=== PATIENT | female | born 1940 | race Caucasian/White ===

== ENCOUNTER 2017-03-03 19:09 | Emergency (ER) | payer MEDICARE ==
[2017-03-03 19:25] VITALS: BP 156/64
--- NOTE | 2017-03-03 20:01 | UC ---
Ear Complaint HPI - HPI Summary HPI Summary: Patient presents to the ED with CC of ear fullness, ear pain which radiates down the right side of the neck since last Saturday. She states it was worse tonight while out to dinner with friends. Denies history of vertigo, ear infections, labrynthitis, BPPV or other inner ear pathologist. PCP is Dr. Roblero and calender worker helper is Dr. Mcintyre. She had one episode of ventricular rhythm and was referred for stress tests, echo, ect 12 years ago. She states she has had 12 years of stress tests with no acute findings and also a cardiac cath with no blockages noted. She is healthy and takes no medications. On arrival, she is somewhat unsteady on her feet, however she states she is just "very aware of not falling." No history of fall. She feels as though her inner ear is "crackling" when she eats and she has decreased hearing since tonight because of it. - History of Current Complaint Chief Complaint: UCEar Stated Complaint: RIGHT EAR COMPLAINT Time Seen by Provider: 03/03/17 19:34 Hx Obtained From: Patient ?: No Onset/Duration: Sudden Onset Severity Initially: Moderate Severity Currently: Moderate Pain Intensity: 8 Pain Scale Used: 0-10 Numeric Associated Signs/Symptoms: Positive: Hearing Loss, URI Symptoms. Negative: Discharge, Foreign Body Sensation - Allergies/Home Medications Allergies/Adverse Reactions: Allergies Allergy/AdvReac Type Severity Reaction Status Date / Time Cefprozil [From Cefzil] Allergy CANT BREATH Verified 03/03/17 19:27 Cefuroxime Allergy CANT BREATH Verified 03/03/17 19:27 Cephalosporins Allergy Unknown Verified 03/03/17 19:27 Reaction Details Clarithromycin [From Biaxin] Allergy Unknown Verified 03/03/17 19:27 Reaction Details Levofloxacin [From Levaquin] Allergy ANZIETY, Verified 03/03/17 19:27 DISORIENTATION Penicillins Allergy ITCHY HIVES Verified 03/03/17 19:27 Sulfa Drugs Allergy ITCHY HIVES Verified 03/03/17 19:27 Home Medications: Home Medications Ascorbic Acid TAB* [Vitamin C TAB*] 500 mg PO DAILY 03/03/17 [History Confirmed 03/03/17] PMH/Surg Hx/FS Hx/Imm Hx Previously Healthy: Yes - Surgical History Surgical History: Yes Surgery Procedure, Year, and Place: MACULAR HOLE RIGHT EYE, [place] 01/2012 - Social History Occupation: Unemployed Lives: With Family Alcohol Use: None Substance Use Type: None Smoking Status (MU): Never Smoked Tobacco Review of Systems Constitutional: Negative Skin: Negative ENT: Ear Ache Respiratory: Negative Cardiovascular: Negative Motor: Negative Musculoskeletal: Negative Neurological: Negative Is Patient Immunocompromised?: No All Other Systems Reviewed And Are Negative: Yes Physical Exam Triage Information Reviewed: Yes Appearance: Well-Appearing, No Pain Distress, Well-Nourished Vital Signs: Initial Vital Signs Temp 97.3 F 03/03/17 19:20 Pulse 63 03/03/17 19:20 Resp 16 03/03/17 19:20 BP 156/64 03/03/17 19:20 Pulse Ox 100 03/03/17 19:20 Eye Exam: Normal Eyes: Positive: Conjunctiva Clear ENT: Positive: Uvula midline. Negative: Pharyngeal erythema, Nasal congestion, TM bulging, TM dull, TM red, Tonsillar swelling, Tonsillar exudate, Hoarse voice , Dental tenderness, Sinus tenderness Dental Exam: Normal Neck exam: Normal Neck: Positive: Nontender, No Lymphadenopathy Respiratory Exam: Normal Respiratory: Positive: Chest non-tender, Lungs clear Cardiovascular Exam: Normal Cardiovascular: Positive: RRR Musculoskeletal Exam: Normal Musculoskeletal: Positive: Strength Intact Neurological Exam: Normal Neurological: Positive: Alert Psychological: Positive: Normal Response To Family Skin Exam: Normal Ear Complaint Course/Dx - Course Course Of Treatment: Discussed case with Dr. Donald. Bruits heard to the R carotid. She is advised to go directly to the ED for further evaluation of the earache as well as the bruit to the right side. Friends taking to ED and son will meet her there. - Differential Dx/Diagnosis Differential Diagnosis/HQI/PQRI: URI, Other - labrynthitis, myringitis, BPPV, eustacian tube dysfunction, other ear pain Provider Diagnoses: ear pain Discharge - Discharge Plan Condition: Stable Disposition: HOME Referrals: Ned Roblero DO [Primary Care Provider] - Additional Instructions: Please go directly to the ER
== END 2017-03-03 20:16 | disposition home or self-care (01) ==
LOC: UCEAST 19:09
DX: H92.01 Otalgia, right ear (principal); R09.89 Other specified symptoms and signs involving the circulatory and respiratory systems; Z88.1 Allergy status to other antibiotic agents; Z88.0 Allergy status to penicillin; Z88.2 Allergy status to sulfonamides
CPT/HCPCS: 99212; G0463

== ENCOUNTER 2017-03-03 20:33 | Emergency (ER) | payer MEDICARE ==
[2017-03-03] MEDS ORDERED: Ibuprofen TAB* 400 MG PO ONE (22:43)
[2017-03-03] MEDS ORDERED: Clindamycin CAP* 150 MG PO ONE (22:43)
[2017-03-03 23:06] VITALS: BP 160/53
--- NOTE | 2017-03-07 11:09 | ED ---
Ines An Gabriel, scribed for Shahram Najera MD on 03/03/17 at 2220 . Throat Pain/Nasal Congestion - HPI Summary HPI Summary: This patient is a 76 year old F presenting to [facility] accompanied by her son with a chief complaint of ear ache since a week ago but worse tonight. The patient rates the pain 6/10 in severity and radiating down her neck. Patient reports trouble hearing, popping in ears on swallowing, feeling disoriented, and difficulty balancing. Patient denies ringing in ears, fever, chills, diaphoresis , CP, SOB, difficulty breathing, edema, ABD pain, OLVERA, and dental pain. The patient denies any recent illness and was sent to ED from . - History of Current Complaint Chief Complaint: EDEarPain Time Seen by Provider: 03/03/17 22:07 Hx Obtained From: Patient Onset/Duration: Lasting Weeks - 1, Still Present Severity: Moderate Associated Signs And Symptoms: Positive: Negative - ringing, fevers, chills, diaphoresis, CP, SOB, difficulty breathing, edema, ABD pain, OLVERA, - Allergies/Home Medications Allergies/Adverse Reactions: Allergies Allergy/AdvReac Type Severity Reaction Status Date / Time Cefprozil [From Cefzil] Allergy CANT BREATH Verified 03/03/17 19:27 Cefuroxime Allergy CANT BREATH Verified 03/03/17 19:27 Cephalosporins Allergy Unknown Verified 03/03/17 19:27 Reaction Details Clarithromycin [From Biaxin] Allergy Unknown Verified 03/03/17 19:27 Reaction Details Levofloxacin [From Levaquin] Allergy ANZIETY, Verified 03/03/17 19:27 DISORIENTATION Penicillins Allergy ITCHY HIVES Verified 03/03/17 19:27 Sulfa Drugs Allergy ITCHY HIVES Verified 03/03/17 19:27 PMH/Surg Hx/FS Hx/Imm Hx Cardiovascular History: Denies: Other Cardiovascular Problems/Disorders Respiratory History: Reports: Hx Asthma GI History: Comment Only: Other GI Disorders - JEFFY MAK VIRUS 1985 Musculoskeletal History: Reports: Hx Arthritis - IN HANDS Denies: Hx Rheumatoid Arthritis, Hx Osteoporosis Sensory History: Reports: Hx Cataracts, Hx Contacts or Glasses - READING GLASSES Denies: Hx Hearing Aid Opthamlomology History: Reports: Hx Cataracts, Hx Contacts or Glasses - READING GLASSES Neurological History: Denies: Other Neuro Impairments/Disorders - Cancer History Hx Chemotherapy: No Hx Radiation Therapy: No - Surgical History Surgery Procedure, Year, and Place: MACULAR HOLE RIGHT EYE, [place] 01/2012 Hx Anesthesia Reactions: No Infectious Disease History: No Infectious Disease History: Denies: Traveled Outside the [place] in Last 30 Days - Family History Known Family History: Negative: Hypertension - Social History Alcohol Use: None Substance Use Type: Reports: None Smoking Status (MU): Never Smoked Tobacco Review of Systems Negative: Fever, Chills, Skin Diaphoresis Negative: Erythema ENT: Negative - ringing in ears Positive: Ear Ache - radiating into neck, Other - trouble hearing, popping in ears on swallowing. Negative: Dental Pain, Sore Throat Negative: Chest Pain Respiratory: Negative - difficulty breathing Negative: Shortness Of Breath, Cough Negative: Abdominal Pain, Vomiting, Nausea Negative: dysuria, hematuria Negative: Myalgia, Edema Negative: Rash Neurological: Negative - dizziness , Other - , feeling disoriented, and difficulty balancing Negative: Headache All Other Systems Reviewed And Are Negative: Yes Physical Exam - Summary Physical Exam Summary: Constitutional: Well-developed, Well-nourished, Alert. (-) Distressed Skin: Warm, Dry HENT: Cerumen impacting on right. Complete visualization of TM, it is erythematous and there is a serous effusion Eyes: Conjunctiva normal Neck: Musculoskeletal ROM normal neck. (-) JVD, (-) Stridor, (-) Tracheal deviation. No carotid bruit Cardio: Rhythm regular, rate normal, Heart sounds normal; Intact distal pulses; The pedal pulses are 2+ and symmetric. Radial pulses are 2+ and symmetric. (-) Murmur Pulmonary/Chest wall: Effort normal. (-) Respiratory distress, (-) Wheezes, (-) Rales Abd: Soft, (-) Tenderness, (-) Distension, (-) Guarding, (-) Rebound Musculoskeletal: (-) Edema Lymph: (-) Cervical adenopathy Neuro: Alert, Oriented x3, Strength normal, Cranial nerves II-XII are grossly intact. (-) Dysmetria, (-) Nystagmus, (-) Ataxia by finger to nose testing, (-) Sensory deficit. Psych: Mood and affect Normal Triage Information Reviewed: Yes Vital Signs On Initial Exam: Initial Vitals Temp Pulse Resp BP Pulse Ox 97.8 F 59 15 180/53 99 03/03/17 20:35 03/03/17 20:35 03/03/17 20:35 03/03/17 20:35 03/03/17 20:35 Vital Signs Reviewed: Yes Procedures - Procedure Summary Procedure Summary: Clear of cerumen impaction using a curette, tolerated well. Now TMs is visible. Diagnostics - Vital Signs Vital Signs Temp Pulse Resp BP Pulse Ox 03/03/17 20:35 97.8 F 59 15 180/53 99 - Laboratory Lab Statement: Any lab studies that have been ordered have been reviewed, and results considered in the medical decision making process. EENT Course/Dx - Course Assessment/Plan: This patient is a 76 year old F presenting to [facility] accompanied by her son with a chief complaint of ear ache since a week ago but worse tonight. Clear of cerumen impaction using a curette, tolerated well. Now TMs is visible. Dx otitis media and cerumen impaction. In the ED course the patient was given Clindamycin. Patient will be discharged with prescription for clindamycin and follow up from PCP. The patient is agreeable with this plan. - Diagnoses Provider Diagnoses: Cerumen impaction, Otitis media Discharge - Discharge Plan Condition: Stable Disposition: HOME Prescriptions: Clindamycin HCl [Clindamycin 150 MG CAP*] 300 mg PO QID #40 cap Patient Education Materials: Clindamycin (By mouth), Otitis Media (ED) Referrals: Ned Roblero DO [Primary Care Provider] - 3 Days Additional Instructions: RETURN TO THE EMERGENCY DEPARTMENT FOR CHANGING OR WORSENING SYMPTOMS. The documentation as recorded by the Ines burk Gabriel accurately reflects the service I personally performed and the decisions made by , Shahram Najera MD.
== END 2017-03-03 23:09 | disposition home or self-care (01) ==
LOC: ED 20:33
DX: H61.20 Impacted cerumen, unspecified ear (principal); H66.90 Otitis media, unspecified, unspecified ear; H92.09 Otalgia, unspecified ear
CPT/HCPCS: 96374; 99282; A9270-GY

== ENCOUNTER 2017-09-11 14:00 | Day surgery (SDC) | payer MEDICARE ==
[~2017-09-11 14:00] MED LIST: Buffered Lidocaine 0.9% SYRIN* 5 ML/SYR SYRINGE INTRADERM ONE
[2017-09-11] MEDS ORDERED: Cyclopentolate 1% OPTH.SOL* 2 ML BTL ONE (15:04)
[2017-09-11] MEDS ORDERED: Ketorolac 0.5% OPHTH (NF) 0.5 % 5 ML BTL ONE (15:04)
[2017-09-11] MEDS ORDERED: Phenylephrine 2.5% OPTH.SOL* 2 ML BTL ONE (15:04)
[2017-09-11] MEDS ORDERED: Proparacaine 0.5% OPHTH.SOL* 15 ML BTL ONE (15:04)
[2017-09-11] MEDS ORDERED: Lidocaine 1%* 5 ML VIAL ONE (15:04)
[2017-09-11] MEDS ORDERED: Lidocaine 2% EPI 1:200000 MPF*10-20 ML VIAL ONE (15:04)
[2017-09-11] MEDS ORDERED: acetaZOLAMIDE TAB* 250 MG ONE (15:04)
[2017-09-11] MEDS ORDERED: Povidone Iodine 5% OPTH* 30 ML BTL ONE (15:04)
[2017-09-11] MEDS ORDERED: Neomycin/Polymy/Dex OPTH.SUSP* MAXITROL 0.1% 5 ML ONE (15:04)
[2017-09-11] MEDS ORDERED: Midazolam* 1 MG/ML 2 ML VIAL (2 MG) ONE (15:57)
[2017-09-11] MEDS ORDERED: fentaNYL* 50 MCG/ML 2 ML VIAL (100 MCG VIAL) ONE (15:57)
[2017-09-11] MEDS ORDERED: Labetalol IV* 5 MG/ML 20 ML VIAL ONE (16:04)
[2017-09-11] MEDS ORDERED: Propofol* 10 MG/ML 20 ML BTL IV PUSH ONE (16:08)
[2017-09-11 16:26] VITALS: BP 120/50
--- NOTE | 2017-09-11 20:52 | OP ---
DATE OF OPERATION: 09/11/[address] [facility] DATE OF : 38 SURGEON: Adam Fernandez M.D. PREOPERATIVE DIAGNOSIS: Cataract, left eye. POSTOPERATIVE DIAGNOSIS: Cataract, left eye. OPERATIVE PROCEDURE: Extracapsular cataract extraction with intraocular lens implant left eye. DESCRIPTION OF PROCEDURE: The patient was brought to the operating room after being given 1/2% Alcaine with epinephrine drops in the preoperative area. The eye was prepped and draped in the usual sterile fashion. Sterile drape and eyelid speculum were placed. Again, topical 1/2% Alcaine with epinephrine was given. A paracentesis incision was made at the 3 o'clock position with the No.75 blade. Clear cornea incision 2.2 x 2.2-mm was created at the 6 o'clock position starting at the anterior limbus using the 2.2-mm keratome. The anterior chamber was irrigated with 0.4 mL of 1% non-preservative intracameral lidocaine and filled with DisCoVisc. A capsulorrhexis was completed using the cystotome and the Utrata forceps. Hydrodissection was performed with balanced salt solution. The lens nucleus was removed with the Phacoemulsification handpiece without incident. Cortex was removed with the irrigation-aspiration handpiece. The capsular bag was re-inflated using DisCoVisc and an [id number] implant was inserted with the shooter. The irrigation-aspiration handpiece was used to remove all residual DisCoVisc. The eye was refilled with balanced salt solution and the wound checked and found to be watertight. Topical Maxitrol drops were given. [id number]/[facility] #: [id number] MTDD
== END 2017-09-11 16:32 | disposition home or self-care (01) ==
LOC: OREAST 14:00
PROVIDERS: ATTEND Specialist
DX: H25.812 Combined forms of age-related cataract, left eye (principal); H35.341 Macular cyst, hole, or pseudohole, right eye; Z85.828 Personal history of other malignant neoplasm of skin; M54.2 Cervicalgia; M54.9 Dorsalgia, unspecified; E78.00 Pure hypercholesterolemia, unspecified
CPT/HCPCS: A9270-GY; J2250; J2704; J3010; V2632

== ENCOUNTER 2017-11-17 12:52 | Emergency (ER) | payer MEDICARE ==
--- OUTSIDE RECORDS SUMMARY | 2017-11-17 13:05 | XMS REPORT | Continuity of Care Document ---
:1940 External Reference #:[id number] Author Name Laurita Lopez O.D. Address [address] [place] [address] Care Team Providers Name Role Phone Ned oRblero D.O. 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 Active Onset: 01/06/2015 Presence of intraocular lens Adam Fernandez M.D. Active Onset: Lyme disease Active Onset: 09/24/2017 Vitreous degeneration Adam Fernandez M.D. Active Family History Date Family Member(s) Problem(s) Comments Father No Current Problems Mother Macular Degeneration First Sister Macular Hole Dr. 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 ETOH Use Denies alcohol use Tobacco Use Start: Unknown Patient has never smoked Recreational Drug Use Denies Drug Use Smoking Status Reviewed: 11/01/17 Patient has never smoked Allergies, Adverse Reactions, Alerts Date Description Reaction Status Severity Comments 01/06/2015 Sulfa Antibiotics Active 01/06/2015 Cefuroxime Active 01/06/2015 Cephalosporins Active 01/06/2015 Levaquin Active 01/06/2015 Penicillin Active 01/06/2015 Ceftin Active 01/10/2017 Neosporin Active Medications Medication Date Status Form Strength Qnty SIG Indications Ordering Provider Calcium 1000 + 00/00/ Active Tablets 1000-800mg Unknown D 0000 -Unit Multi Vitamin 00/00/ Active Tablets Unknown Daily 0000 Ibuprofen 00/00/ Active Capsules 200mg as needed Unknown 0000 Prednisolone 09/02/ Hx Suspension 1% 15ml 1 drop Adam J. Acetate 2018 - left eye [place], 10/10/ once a day M.D. 2018 Ketorolac 09/02/ Hx Solution 0.5% 10ml use one Adam Dejan Tromethamine 2018 - drop in [place], 09/01/ the left M.D. 2018 eye three times a day, start the day before surgery Gentamicin 09/02/ Hx Solution 0.3% 5ml one drop Adam J. Sulfate 2018 - in the [place], 09/14/ left eye M.D. 2018 three times a day starting the day before surgery Vitamin C ER 00/ Hx Tablets ER 1000mg Unknown 0000 - 2017 Immunizations Description No Information Available Vital Signs Description No Information Available Results Description No Information Available Procedures Date Code Description Status 10/12/2017 96665 Est Patient Intermediate Exam Completed 09/11/2017 97306 Extracapsular Cataract Extraction W/Intraocular Lens Completed 09/02/2017 60273 Ophthalmic Biometry Completed 07/09/2017 74786 Scanning Computerized Opthalmic Diagnostic Posterior Seg Completed Retina 07/09/2017 03305 Est Patient Comprehensive Exam Completed 01/10/2017 62018 Est Patient Comprehensive Exam Completed 07/10/2016 15136 Scanning Computerized Opthalmic Diagnostic Posterior Seg Completed Retina 07/10/2016 67190 Est Patient Comprehensive Exam Completed 07/11/2015 10795 Est Patient Intermediate Exam Completed 01/06/2015 96796 Est Patient Comprehensive Exam Completed 01/06/2015 29614 Determination Of Refractive State Completed 01/06/2015 87187 Scanning Computerized Opthalmic Diagnostic Posterior Seg Completed Retina 01/05/2014 86596 Scanning Computerized Opthalmic Diagnostic Posterior Seg Completed Retina 01/05/2014 68287 Est Patient Comprehensive Exam Completed 01/05/2013 24659 Scanning Computerized Opthalmic Diagnostic Posterior Seg Completed Retina 01/05/2013 22193 Est Patient Intermediate Exam Completed 06/18/2012 24349 Extracapsular Cataract Extraction W/Intraocular Lens Completed 06/10/2012 45022 Ophthalmic Biometry Completed 04/24/2012 39427 Scanning Computerized Opthalmic Diagnostic Posterior Seg Completed Retina 04/24/2012 71495 Est Patient Comprehensive Exam Completed 12/11/2011 45575 Scanning Computerized Opthalmic Diagnostic Posterior Seg Completed Retina 12/11/2011 53106 Est Patient Intermediate Exam Completed 07/24/2011 60170 Est Patient Comprehensive Exam Completed Encounters Type Date Location Provider Dx Diagnosis Office Visit 09/02/2017 Adam Paul, H25.812 Combined forms of 11:00a gill RUIZ M.D. age-related cataract, left eye H35.341 Macular cyst, hole, or pseudohole, right eye Z96.1 Presence of intraocular lens Office Visit 06/10/2012 12:00p Adam Paul 366.16 Senile Nuclear gill RUIZ M.D. Sclerosis / Cataract 366.16 Senile Nuclear Sclerosis / Cataract Plan of Treatment Future Appointment(s):09/25/2018 10:15 am - Adam Fernandez M.D. at Adam Fernandez MD, 11/01/2017 - Laurita Lopez O.D.H43.812 Vitreous degeneration, left eyeComments:Smoking can increase the risk of developing or worsening any eye related disease, as well as affect your overall health. If you are a smoker , we strongly recommend that you quit.If you are not a smoker, we strongly recommend that you do not start. You have a Posterior Vitreous Detachment in your left eye. If you have any changes in your floaters or flashing lights, please contact this office.Follow up:as [id number] Presence of intraocular lensComments:The artificial lens implants in both eyes appear to be stable at this time.
[2017-11-17] MEDS ORDERED: Ibuprofen TAB* 400 MG PO ONE (14:50)
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
[2017-11-17 15:07] LABS: ABS Basophils 0.1 10^3/ul (0-0.2); ABS Eosinophils 0.1 10^3/ul (0-0.6); ABS Lymphocytes 1.2 10^3/ul (1.0-4.8); ABS Monocytes 0.8 10^3/ul (0-0.8); ABS Neutrophils 9.8 10^3/ul (1.5-7.7); ABS Nucleated RBC 0 10^3/ul; Eosinophil % 0.9 % (0-6); Hematocrit 43 % (35-47); Hemoglobin 14.8 g/dl (12.0-16.0); Lymphocyte % 10.4 % (25-47); Mean Corpuscular HGB Conc 34 g/dl (31-36); Mean Corpuscular Hemoglobin 31 pg (27-31); Mean Corpuscular Volume 92 fL (80-97); Mean Platelet Volume 7.6 um3 (7.4-10.4); Nucleated Red Blood Cells % 0.1; Platelet Count 274 10^3/ul (150-450); Red Blood Count 4.74 10^6/ul (4.00-5.40); Red Cell Distribution Width 14 % (10.5-15)
[2017-11-17 15:28] LABS: EGFR Non-African American 77.1 (>60); Uric Acid 4.3 mg/dL (2.3-6.6)
[2017-11-17] MEDS ORDERED: NS 0.9% 1000 ML* 1,000 ML IV ONE (15:36)
[2017-11-17 16:31] VITALS: BP 172/74
== END 2017-11-17 16:30 | disposition home or self-care (01) ==
LOC: ED 12:52
DX: L03.116 Cellulitis of left lower limb (principal); L94.9 Localized connective tissue disorder, unspecified; J45.909 Unspecified asthma, uncomplicated
CPT/HCPCS: 36415; 80053; 83605; 84550; 85025; 85652; 86140; 96360; 99282; A9270-GY

== ENCOUNTER 2020-05-22 10:03 | Inpatient (IN) ==
[2020-05-22] MEDS ORDERED: NS 0.9% 1000 ml BAG 1,000 ML IV ONE (10:19)
[2020-05-22] MEDS ORDERED: Ondansetron 4 mg VIAL 2 MG/ML 2 ml VIAL IV ONE (10:21)
[2020-05-22 11:32] LABS: ABS Lymphocytes 0.5 10^3/ul (1.0-4.8); ABS Monocytes 0.4 10^3/ul (0-0.8); ABS Neutrophils 10.5 10^3/ul (1.5-7.7); Eosinophil % 0.2 %; Hematocrit 42 % (35-47); Hemoglobin 14.7 g/dL (12.0-16.0); Lymphocyte % 4.1 %; Mean Corpuscular HGB Conc 35 g/dL (31-36); Mean Corpuscular Hemoglobin 31 pg (27-31); Mean Corpuscular Volume 90 fL (80-97); Platelet Count 338 10^3/uL (150-450); Red Cell Distribution Width 13 % (10-15); White Blood Count 11.5 10^3/uL (3.5-10.8)
[2020-05-22 11:47] LABS: Albumin/Globulin Ratio 1.3 (1-3); BUN/Creatinine Ratio 21.5 (8-20); Calcium 9.7 mg/dL (8.6-10.3); EGFR African American 84.7 (>60); Globulin 3.1 g/dL (2-4); Magnesium 1.9 mg/dL (1.9-2.7); Potassium 4.2 mmol/L (3.5-5.0); Total Bilirubin 1.5 mg/dL (0.2-1.0); Total Protein 7.1 g/dL (6.4-8.9)
[2020-05-22 11:49] LABS: INR 1.01 (0.82-1.09)
[2020-05-22] MEDS ORDERED: Ondansetron 4 mg VIAL 2 MG/ML 2 ml VIAL IV PRN (13:52)
[2020-05-22] MEDS ORDERED: Iohexol 300 (CONTRAST) 10 ML SDV IV ONE (15:03)
[2020-05-22] MEDS: NS 0.9% 1000 ml BAG 1,000 ML IV SCH (17:16)
[2020-05-22] MEDS: Enoxaparin 40 MG/0.4 ML SYR SUBCUT SCH (17:16)
[2020-05-22] MEDS: Aztreonam 1 GM in NS 0.9% 50 ML 50 ML IV SCH (17:46)
[2020-05-22] MEDS ORDERED: Prochlorperazine 5 mg/ml 2 ml VIAL (10 mg) IV PRN (18:32)
[2020-05-23] MEDS: Aztreonam 1 GM in NS 0.9% 50 ML 50 ML IV SCH ×3 (00:55→16:32)
[2020-05-23 05:58] LABS: ABS Eosinophils 0.3 10^3/ul (0-0.6); ABS Lymphocytes 1.1 10^3/ul (1.0-4.8); ABS Monocytes 0.7 10^3/ul (0-0.8); ABS Neutrophils 4.6 10^3/ul (1.5-7.7); Eosinophil % 4.1 %; Hematocrit 36 % (35-47); Hemoglobin 12.3 g/dL (12.0-16.0); Lymphocyte % 16.3 %; Mean Corpuscular HGB Conc 34 g/dL (31-36); Mean Corpuscular Hemoglobin 31 pg (27-31); Mean Corpuscular Volume 92 fL (80-97); Mean Platelet Volume 8.1 fL (7.4-10.4); Platelet Count 267 10^3/uL (150-450); Red Blood Count 3.96 10^6 /uL (3.70-4.87); Red Cell Distribution Width 14 % (10-15); White Blood Count 6.6 10^3/uL (3.5-10.8)
[2020-05-23 06:13] LABS: BUN/Creatinine Ratio 16.9 (8-20); Calcium 8.4 mg/dL (8.6-10.3); EGFR African American 106.1 (>60); EGFR Non-African American 87.7 (>60); Magnesium 1.9 mg/dL (1.9-2.7); Potassium 3.6 mmol/L (3.5-5.0)
[2020-05-23] MEDS: NS 0.9% 1000 ml BAG 1,000 ML IV SCH (08:19)
[2020-05-23 08:25] LABS: C Reactive Protein 19.15 mg/L (<8.01)
[2020-05-23] MEDS: Enoxaparin 40 MG/0.4 ML SYR SUBCUT SCH (14:22)
[2020-05-23 15:35] LABS: Urine Appearance Clear; Urine Bilirubin Negative (Negative); Urine Blood 1+ (Negative); Urine Color Straw; Urine Glucose Negative (Negative); Urine Ketones Negative (Negative); Urine Nitrite Negative (Negative); Urine Protein Negative (Negative); Urine Specific Gravity 1.006 (1.010-1.030); Urine Urobilinogen Negative (Negative)
[2020-05-23 15:43] LABS: Urine Bacteria Absent (Absent); Urine Red Blood Cell Trace(0-2/hpf) (Absent); Urine Squamous Epithelial Cell Present (Absent); Urine White Blood Cell 1+(6-10/hpf) (Absent)
[2020-05-23] MEDS ORDERED: NS 0.9% 1000 ml BAG 1,000 ML IV SCH (18:00)
[2020-05-24] MEDS: Aztreonam 1 GM in NS 0.9% 50 ML 50 ML IV SCH ×3 (00:47→16:28)
[2020-05-24 07:00] LABS: ABS Eosinophils 0.2 10^3/ul (0-0.6); ABS Lymphocytes 1.4 10^3/ul (1.0-4.8); ABS Monocytes 0.7 10^3/ul (0-0.8); ABS Neutrophils 3.3 10^3/ul (1.5-7.7); Eosinophil % 3.5 %; Hematocrit 38 % (35-47); Hemoglobin 13.1 g/dL (12.0-16.0); Lymphocyte % 24.5 %; Mean Corpuscular HGB Conc 35 g/dL (31-36); Mean Corpuscular Hemoglobin 32 pg (27-31); Mean Corpuscular Volume 92 fL (80-97); Mean Platelet Volume 8.1 fL (7.4-10.4); Platelet Count 284 10^3/uL (150-450); Red Blood Count 4.12 10^6 /uL (3.70-4.87); Red Cell Distribution Width 13 % (10-15); White Blood Count 5.6 10^3/uL (3.5-10.8)
[2020-05-24 07:15] LABS: Calcium 8.8 mg/dL (8.6-10.3); Potassium 3.7 mmol/L (3.5-5.0)
[2020-05-24 07:21] LABS: BUN/Creatinine Ratio 22.7 (8-20); EGFR African American 104.3 (>60); EGFR Non-African American 86.2 (>60)
[2020-05-24] MEDS: Enoxaparin 40 MG/0.4 ML SYR SUBCUT SCH (12:54)
[2020-05-25] MEDS: Aztreonam 1 GM in NS 0.9% 50 ML 50 ML IV SCH ×2 (00:10→09:37)
[2020-05-25 07:03] LABS: ABS Eosinophils 0.2 10^3/ul (0-0.6); ABS Lymphocytes 1.5 10^3/ul (1.0-4.8); ABS Monocytes 0.6 10^3/ul (0-0.8); ABS Neutrophils 2.9 10^3/ul (1.5-7.7); Eosinophil % 4.8 %; Hematocrit 42 % (35-47); Hemoglobin 14.8 g/dL (12.0-16.0); Lymphocyte % 28.4 %; Mean Corpuscular HGB Conc 35 g/dL (31-36); Mean Corpuscular Hemoglobin 32 pg (27-31); Mean Corpuscular Volume 92 fL (80-97); Mean Platelet Volume 7.8 fL (7.4-10.4); Platelet Count 336 10^3/uL (150-450); Red Blood Count 4.61 10^6 /uL (3.70-4.87); Red Cell Distribution Width 14 % (10-15); White Blood Count 5.2 10^3/uL (3.5-10.8)
[2020-05-25 07:21] LABS: BUN/Creatinine Ratio 25.8 (8-20); Calcium 9.3 mg/dL (8.6-10.3); EGFR African American 104.3 (>60); EGFR Non-African American 86.2 (>60)
[2020-05-25] MEDS ORDERED: Magnesium Hydroxide LIQ 30 ML UDC PO ONE (10:44)
[2020-05-25 11:22] LABS: C Reactive Protein 12.49 mg/L (<8.01)
[2020-05-25] MEDS ORDERED: NS 0.9% 500 ml BAG 500 ML IV ONE (12:00)
[2020-05-25] MEDS: Enoxaparin 40 MG/0.4 ML SYR SUBCUT SCH (13:15)
[2020-05-25] MEDS ORDERED: NS 0.9% 1000 ml BAG 1,000 ML IV SCH (14:00)
[2020-05-25 16:16] VITALS: BP 120/51
== END 2020-05-25 18:20 | disposition home or self-care (01) | DRG 690 ==
LOC: ED 10:03 → MED 10:03 → OBSVTOIN 05-23 07:00 → MED 05-24 15:28
PROVIDERS: ADMIT Hospitalist; ATTEND Internal Medicine

== ENCOUNTER 2021-10-19 15:39 | Observation (INO) ==
[2021-10-19 17:13] LABS: ABS Eosinophils 0.2 10^3/ul (0-0.6); ABS Lymphocytes 1.2 10^3/ul (1.0-4.8); ABS Monocytes 0.7 10^3/ul (0-0.8); ABS Neutrophils 5.1 10^3/ul (1.5-7.7); Eosinophil % 2.7 %; Hematocrit 42 % (35-47); Hemoglobin 14.2 g/dL (12.0-16.0); Lymphocyte % 17.1 %; Mean Corpuscular HGB Conc 34 g/dL (31-36); Mean Corpuscular Hemoglobin 31 pg (27-31); Mean Corpuscular Volume 92 fL (80-97); Mean Platelet Volume 7.3 fL (7.4-10.4); Platelet Count 341 10^3/uL (150-450); Red Blood Count 4.58 10^6 /uL (3.70-4.87); Red Cell Distribution Width 13 % (10-15); White Blood Count 7.3 10^3/uL (3.5-10.8)
[2021-10-19 17:48] LABS: Albumin 4.2 g/dL (3.2-5.2); Albumin/Globulin Ratio 1.6 (1-3); C Reactive Protein 3.2 mg/L (<8.01); Calcium 9.9 mg/dL (8.6-10.3); Globulin 2.7 g/dL (2-4); Potassium 4.7 mmol/L (3.5-5.0); Total Bilirubin 0.7 mg/dL (0.2-1.0); Total Protein 6.9 g/dL (6.4-8.9); eGFR CKD-EPI 73.5 (>60)
[2021-10-19 19:30] LABS: Urine Appearance Clear; Urine Bilirubin Negative (Negative); Urine Blood Trace (Lysed) (Negative); Urine Color Yellow; Urine Glucose Negative (Negative); Urine Ketones Trace (Negative); Urine Nitrite Negative (Negative); Urine Protein Negative (Negative); Urine Specific Gravity 1.015 (1.005-1.030); Urine Urobilinogen 0.2 (Negative) (Negative); Urine pH 5.5 (5.0-9.0)
[2021-10-19 19:35] LABS: Urine Bacteria Absent (Absent); Urine Red Blood Cell 1+(3-5/hpf) (Absent); Urine White Blood Cell Trace(0-5/hpf) (Absent)
[2021-10-19] MEDS ORDERED: NS 0.9% 1000 ml BAG 1,000 ML IV SCH ×3 (20:45→23:32)
[2021-10-19] MEDS ORDERED: Aztreonam 1 GM in NS 0.9% 50 ML 50 ML IV SCH (23:45)
[2021-10-19] MEDS ORDERED: Enoxaparin 40 MG/0.4 ML SYR SUBCUT SCH (23:45)
[2021-10-20 01:53] LABS: Urine Osmo 208 mOsm/kg (150-1150)
[2021-10-20 05:59] LABS: eGFR CKD-EPI 87.2 (>60)
[2021-10-20 07:33] LABS: Osmolality Serum 268 mOsm/kg (275-295)
[2021-10-20 12:28] VITALS: BP 132/70
== END 2021-10-20 14:20 | disposition home or self-care (01) ==
LOC: ED 15:39 → EDHOLD 15:39 → SUATTDRO 22:52 → EDHOLD 10-20 12:27
PROVIDERS: ADMIT Hospitalist; ATTEND Student in an Organized Health Care Education/Training Program

== ENCOUNTER 2021-10-29 13:35 | Inpatient (IN) ==
[2021-10-29 18:13] LABS: Urine Appearance Clear; Urine Bilirubin Negative (Negative); Urine Blood 1+ (Small) (Negative); Urine Color Yellow; Urine Glucose Negative (Negative); Urine Ketones 1+ (15mg/dL) (Negative); Urine Nitrite Negative (Negative); Urine Protein Negative (Negative); Urine Specific Gravity 1.025 (1.005-1.030); Urine Urobilinogen 0.2 (Negative) (Negative); Urine pH 5.5 (5.0-9.0)
[2021-10-29 18:22] LABS: Urine Bacteria Absent (Absent); Urine Red Blood Cell 3+(>10/hpf) (Absent); Urine Squamous Epithelial Cell Present (Absent); Urine White Blood Cell 3+(>20/hpf) (Absent)
[2021-10-29 18:31] LABS: ABS Eosinophils 0.2 10^3/ul (0-0.6); ABS Lymphocytes 1.4 10^3/ul (1.0-4.8); ABS Monocytes 0.7 10^3/ul (0-0.8); ABS Neutrophils 5.2 10^3/ul (1.5-7.7); Eosinophil % 2.3 %; Hematocrit 40 % (35-47); Hemoglobin 13.6 g/dL (12.0-16.0); Lymphocyte % 18.4 %; Mean Corpuscular HGB Conc 34 g/dL (31-36); Mean Corpuscular Hemoglobin 31 pg (27-31); Mean Corpuscular Volume 90 fL (80-97); Mean Platelet Volume 7.2 fL (7.4-10.4); Platelet Count 291 10^3/uL (150-450); Red Blood Count 4.43 10^6 /uL (3.70-4.87); Red Cell Distribution Width 13 % (10-15); White Blood Count 7.5 10^3/uL (3.5-10.8)
[2021-10-29 18:39] LABS: INR 0.96 (0.89-1.11)
[2021-10-29 18:40] LABS: Activated Partial Thrombo Time 35.8 seconds (26.0-38.0)
[2021-10-29 19:04] LABS: Albumin 4.3 g/dL (3.2-5.2); Albumin/Globulin Ratio 1.4 (1-3); C Reactive Protein 6.76 mg/L (<8.01); Calcium 9.8 mg/dL (8.6-10.3); Globulin 3.1 g/dL (2-4); Potassium 4.2 mmol/L (3.5-5.0); Total Protein 7.4 g/dL (6.4-8.9); eGFR CKD-EPI 78.2 (>60)
[2021-10-29] MEDS ORDERED: Aztreonam 1 GM in NS 0.9% 50 ML 50 ML IV ONE (20:08)
[2021-10-29] MEDS ORDERED: Al Hydrox/Mg Hydrox/Simet LIQ 30 ML UDC PO PRN (20:15)
[2021-10-29 20:36] LABS: TSH Ultra Thyroid Stim Horm 1.64 mcIU/mL (0.34-5.60)
[2021-10-29] MEDS: Enoxaparin 40 MG/0.4 ML SYR SUBCUT SCH (21:07)
[2021-10-29] MEDS: NS 0.9% 1000 ml BAG 1,000 ML IV SCH (21:07)
[2021-10-29 21:38] LABS: High Sensitivity Troponin 1 Hr 7 pg/mL (<15)
[2021-10-29 21:39] LABS: Calcium 9.7 mg/dL (8.6-10.3); Potassium 4.2 mmol/L (3.5-5.0); eGFR CKD-EPI 83.4 (>60)
[2021-10-30] MEDS: NS 0.9% 1000 ml BAG 1,000 ML IV SCH ×2 (03:48→09:40)
[2021-10-30] MEDS: Aztreonam 1 GM in NS 0.9% 50 ML 50 ML IV SCH ×3 (04:35→21:00)
[2021-10-30 05:59] LABS: ABS Eosinophils 0.3 10^3/ul (0-0.6); ABS Lymphocytes 0.6 10^3/ul (1.0-4.8); ABS Monocytes 0.7 10^3/ul (0-0.8); ABS Neutrophils 6.5 10^3/ul (1.5-7.7); Eosinophil % 3.4 %; Hematocrit 39 % (35-47); Hemoglobin 13.3 g/dL (12.0-16.0); Lymphocyte % 7.9 %; Mean Corpuscular HGB Conc 35 g/dL (31-36); Mean Corpuscular Hemoglobin 31 pg (27-31); Mean Corpuscular Volume 90 fL (80-97); Mean Platelet Volume 7.3 fL (7.4-10.4); Nucleated Red Blood Cells % 0.1; Platelet Count 278 10^3/uL (150-450); Red Blood Count 4.28 10^6 /uL (3.70-4.87); Red Cell Distribution Width 13 % (10-15); White Blood Count 8.1 10^3/uL (3.5-10.8)
[2021-10-30 10:02] LABS: Calcium 8.9 mg/dL (8.6-10.3); Potassium 3.9 mmol/L (3.5-5.0); eGFR CKD-EPI 83.4 (>60)
[2021-10-30] MEDS: Enoxaparin 40 MG/0.4 ML SYR SUBCUT SCH (20:59)
[2021-10-31] MEDS: Aztreonam 1 GM in NS 0.9% 50 ML 50 ML IV SCH ×2 (05:15→12:46)
[2021-10-31 06:11] LABS: Potassium 4.2 mmol/L (3.5-5.0); eGFR CKD-EPI 86.6 (>60)
[2021-10-31] MEDS: Enoxaparin 40 MG/0.4 ML SYR SUBCUT SCH (20:58)
[2021-11-01 11:20] VITALS: BP 95/72
[2021-11-02 15:58] LABS: IgG Immunoblot Negative (Negative); IgM Immunoblot Negative (Negative)
[2021-11-02 16:39] LABS: Anaplasma phagocytophilum Negative (Negative); B. miyamotoi PCR, B Negative (Negative); Babesia divergens/MO-1 Negative (Negative); Babesia ducani Negative (Negative); Ehrlichia chaffeensis Negative (Negative); Ehrlichia ewingii/canis Negative (Negative); Ehrlichia muris eauclairensis Negative (Negative)
== END 2021-11-01 14:10 | disposition home or self-care (01) | DRG 690 ==
LOC: ED 13:35 → EDHOLD 20:15 → SUATTDRO 20:15 → MED 21:59
PROVIDERS: ADMIT Internal Medicine; ATTEND Internal Medicine